=== PATIENT | male | born 1995 | race Two or more races ===

== ENCOUNTER 2018-08-05 14:35 | Emergency (ER) | payer OTHER ==
[~2018-08-05] VITALS: Ht 170.2 cm; Wt 77.1 kg
[2018-08-05 14:55] VITALS: BP 122/73
[2018-08-05] MEDS ORDERED: Tetanus/Diptheria/Pertussis Vaccine 0.5ml Syr IM ONE (15:15)
[2018-08-05] MEDS ORDERED: Surgicel 4in x 8in TOPIC ONE (16:15)
--- NOTE | 2018-08-05 16:20 | Emergency Room Report ---
History of Present Illness General Chief Complaint: Laceration Source: Patient (Dianne Cotton) Present Illness HPI 22-year-old male with no significant past medical history here complaining of a laceration to the tip of his left index finger after cutting his finger at work. Patient applied some unknown substance to stop the bleeding and came immediately to the emergency room patient complains of moderate bleeding pain radiating 5 out of 10 without radiation. Eyes numbness and tingling. K for pain. Is able to move his finger with minimal pain. Denies chest pain, shortness of breath, palpitation, no other associated symptoms patient is not up -to-date with his tetanus shot, and is currently on no medication (Dianne Cotton) Allergies: Coded Allergies: No Known Allergies (Unverified , 08/05/18) Patient History Past Medical History: see triage record Past Surgical History: none Pertinent Family History: none Immunizations: other - Tdap given Reviewed Nursing Documentation: PMH: Agreed; PSxH: Agreed (Dianne Cotton) Nursing Documentation-PMH Past Medical History: No Stated History (Dianne Cotton) Review of Systems All Other Systems: negative except mentioned in HPI (Dianne Cotton) Physical Exam Vital Signs Date Time Temp Pulse Resp B/P (MAP) Pulse Ox O2 Delivery O2 Flow Rate FiO2 08/05/18 14:45 98.8 76 17 122/73 99 Room Air Sp02 EP Interpretation: reviewed, normal General Appearance: normal inspection, well appearing, no apparent distress, alert, GCS 15 Head: normocephalic, atraumatic Eyes: bilateral eye normal inspection, bilateral eye PERRL ENT: normal ENT inspection, normal pharynx Neck: normal inspection, full range of motion, supple Respiratory: normal inspection, lungs clear, no rhonchi Cardiovascular #1: normal inspection, no edema, no murmur Cardiovascular #2: 2+ radial (R), 2+ radial (L) Gastrointestinal: normal inspection, soft Rectal: deferred Genitourinary: deferred Musculoskeletal: back normal, gait/station normal, other - medial nailbed left index finger is loose, moderate bleeding, no laceration noted Neurologic: normal inspection, alert, oriented x3 Psychiatric: normal inspection, judgement/insight normal Skin: warm/dry, palpation normal, well hydrated, laceration - Evulsion of left index finger nailbed on the medial side Lymphatic: normal inspection, no adenopathy (Dianne Cotton) Procedures Laceration/Wound Repair Laceration/Wound Repair : Consent: Verbal Wound Location: upper extremity Wound's Depth, Shape: superficial Wound Length (cm): 1 Wound Explored: contaminated Irrigated w/ Saline (ccs): 10 Betadine Prep?: No Anesthesia: other Wound Debrided: minimal Patient Tolerated: Well Complications: None (Dianne Cotton) Medical Decision Making PA Attestation Diagnosis and treatment plans were reviewed and discussed with my supervising physician Dr. Wilkerson (Dianne Cotton) Diagnostic Impression: Primary Impression: Nail avulsion ER Course 22-year-old male with no significant past medical history here complaining of a laceration to the tip of his left index finger after cutting his finger at work. Patient applied some unknown substance to stop the bleeding and came immediately to the emergency room patient complains of moderate bleeding pain radiating 5 out of 10 without radiation. Eyes numbness and tingling. K for pain. Is able to move his finger with minimal pain. Denies chest pain, shortness of breath, palpitation, no other associated symptoms patient is not up -to-date with his tetanus shot, and is currently on no medication Ddx considered but are not limited to nail avulsion, laceration, fracture Vital signs: are WNL, pt. is afebrile H&PE are most consistent withnail avulsion ORDERS: finger x-ray, wound dressing, sheet, [place], Keflex ED INTERVENTIONS: removal of nail, ibuprofen DISCHARGE: At this time pt. is stable for d/c to home. Will provide printed patient care instructions, and any necessary prescriptions. Care plan and follow up instructions have been discussed with the patient prior to discharge. and follow-up with the primary care provider and hand specialist (Dianne Cotton) Other X-Ray Diagnostic Results Other X-Ray Diagnostic Results : X-Ray ordered: finger # of Views/Limited Vs Complete: 2 View Indication: Other - nail avulsion EP Interpretation: Yes PA Xray: Interpretation reviewed, by supervising MD, and agrees with findings. Interpretation: no dislocation, no soft tissue swelling Impression: No acute disease Electronically Signed by: dianne Kennedy PA-C (Dianne Cotton) Other X-Ray Diagnostic Results : Electronically Signed by: CHARLENE xray documentation reviewed by me and is accurate, Hiren Wilkerson MD. (Hiren Wilkerson MD) Last Vital Signs Date Time Temp Pulse Resp B/P (MAP) Pulse Ox O2 Delivery O2 Flow Rate FiO2 08/05/18 14:55 98.8 17 122/73 99 Room Air 08/05/18 14:45 76 (Dianne Cotton) Disposition: HOME, SELF-CARE Condition: Stable Scripts Hydrocodone Bit/Acetaminophen 5-325* (NORCO 5-325*) 1 Each Tablet 1 TAB ORAL Q6H PRN for For Pain, #10 TAB 0 Refills Prov: Dianne Cotton 08/05/18 Cephalexin* (KEFLEX*) 500 Mg Capsule 500 MG ORAL EVERY 6 HOURS for 7 Days, #28 CAP Prov: Dianne Cotton 08/05/18 Patient Instructions: Laceration Care, Adult, Nail Avulsion Additional Instructions: take medication as directed, follow with the hand specialist, avoid contaminating the area, take antibiotics as directed Dianne Cotton Aug 05, 2018 16:20 Hiren Wilkerson MD Aug 07, 2018 04:50
[2018-08-05] MEDS ORDERED: NORCO 5-325 TA1 EACH ORAL (16:24)
[2018-08-05] MEDS ORDERED: CEPHALEXIN500 MG ORAL (16:24)
[2018-08-05 17:00] VITALS: BP 133/76
--- NOTE | 2018-08-06 08:51 | Diagnostic Imaging Report ---
Indication: Finger pain and trauma Technique: 3 views of the left index finger Comparison: none Findings: There is evidence of soft tissue injury to the terminal tuft of the second digit. No radiopaque foreign body demonstrated. No underlying bony abnormality demonstrated Impression: Evidence of soft tissue trauma. Negative for acute bony injury or radiopaque foreign body
== END 2018-08-05 17:30 | disposition home or self-care (01) ==
LOC: EMR 17:04
DX: S61.311A Laceration without foreign body of left index finger with damage to nail, initial encounter (principal); W26.0XXA Contact with knife, initial encounter; Y92.69 Other specified industrial and construction area as the place of occurrence of the external cause; F17.200 Nicotine dependence, unspecified, uncomplicated; R20.0 Anesthesia of skin; Z23 Encounter for immunization
CPT/HCPCS: 90471; 90715; 99283